=== PATIENT | female | born 1985 | race American Indian/Alaskan Native ===

== ENCOUNTER 2016-08-08 16:32 | Emergency (ER) | payer MEDICAID ==
[2016-08-08 16:33] VITALS: BMI 21.5
[2016-08-08 16:42] VITALS: BP 123/85; PULSE 87; RESP 20; TEMP 98.8; O2SAT 98
--- NOTE | 2016-08-08 17:19 | C.PDOC ---
History Of Present Illness 31 y/o female presents to the ED with complaints of diffuse itchy rash to neck, chest and back for the past 2 weeks. Pt unsure of cause. Pt took benadryl with transient relief of itching. She denies cough, runny nose, sore throat, fever, sensation of throat closing up. Time Seen by Provider: 08/08/16 16:44 Chief Complaint (Nursing): Abnormal Skin Integrity History Per: Patient History/Exam Limitations: no limitations Onset/Duration Of Symptoms: Days Current Symptoms Are (Timing): Still Present Quality Of Symptoms: Itching Severity: Mild Past Medical History Reviewed: Historical Data, Nursing Documentation, Vital Signs Vital Signs: Last Vital Signs Temp 98.8 F 08/08/16 16:40 Pulse 87 08/08/16 16:40 Resp 20 08/08/16 16:40 BP 123/85 08/08/16 16:40 Pulse Ox 98 08/08/16 19:00 - Medical History PMH: Gastritis - [facility] Procedures INJECT/INFUSE NEC (06/20/14) OTHER SKIN & SUBQ I D (03/03/14) Family History: States: No Known Family Hx - Social History Hx Alcohol Use: No Hx Substance Use: No - Immunization History Hx Tetanus Toxoid Vaccination: Yes Review Of Systems Except As Marked, All Systems Reviewed And Found Negative. Constitutional: Negative for: Fever, Chills ENT: Negative for: Nose Discharge, Throat Pain Cardiovascular: Negative for: Chest Pain, Palpitations Respiratory: Negative for: Cough, Shortness of Breath Skin: Positive for: Rash (diffuse, itchy rash on neck, chest, back) Physical Exam - Physical Exam Appears: Non-toxic, No Acute Distress, Other (speaking in full sentences) Skin: Warm, Dry, Rash (scattered uricaria to neck, chest and back; blanching, nonvesicular) Head: Normacephalic Nose: Normal Oral Mucosa: Moist, No Drooling Tongue: Normal Appearing, No Swelling Lips: Normal Appearing, No Swelling Throat: Normal, No Erythema, No Exudate Cardiovascular: Rhythm Regular, No Murmur Respiratory: Normal Breath Sounds, No Rales, No Rhonchi, No Wheezing Extremity: Bilateral: Atraumatic Neurological/Psych: Oriented x3 ED Course And Treatment O2 Sat by Pulse Oximetry: 98 (on room air) Pulse Ox Interpretation: Normal Progress Note: Patient given PO Prednisone and Claritin, as well as Rxs for same. Patient instructed to follow up with PMD/clinic in 1-2 days, and understands she should return to ED if symptoms worsen. Disposition Counseled Patient/Family Regarding: Diagnosis, Need For Followup, Rx Given - Disposition Referrals: [facility] [Outside] Disposition: HOME/ ROUTINE Disposition Time: 17:20 Condition: STABLE Additional Instructions: FOLLOW UP WITH YOUR DOCTOR/CLINIC IN 1-2 DAYS USE MEDICATIONS DIRECTED RETURN TO EMERGENCY ROOM IF SYMPTOMS WORSEN Prescriptions: Loratadine [Claritin] 10 mg PO DAILY #7 tab predniSONE [predniSONE Tab] 40 mg PO DAILY #8 tab Instructions: Urticaria (ED) Print Language: THAI - POA Present On Arrival: None - Clinical Impression Clinical Impression: Urticaria - Scribe Statement The provider has reviewed the documentation as recorded by the Karine Gross Provider Attestation: All medical record entries made by the Karine were at my direction and personally dictated by me. I have reviewed the chart and agree that the record accurately reflects my personal performance of the history, physical exam, medical decision making, and the department course for this patient. I have also personally directed, reviewed, and agree with the discharge instructions and disposition.
== END 2016-08-08 17:44 | disposition home or self-care (01) ==
LOC: C.ER 16:32
DX: L50.9 Urticaria, unspecified (principal)